=== PATIENT | female | born 1960 ===

== ENCOUNTER 2017-11-06 19:35 | Emergency (ER) | payer BC ==
[2017-11-06] MEDS ORDERED: Sodium Chloride 0.9% 1,000 ML IV STA (20:18)
[2017-11-06] MEDS ORDERED: Morphine 4 mg/ml ISec IVP STA (20:18)
[2017-11-06] MEDS ORDERED: Famotidine 20mg/50ml 20 MG/50 ML BAG IVPB STA (20:21)
--- NOTE | 2017-11-06 20:23 | ED PDOC ---
Arrival/HPI - General Chief Complaint: Abdominal Pain Time Seen by Provider: 11/06/17 19:48 Historian: Patient, Manager Port (medical staff) - History of Present Illness Narrative History of Present Illness (Text): 11/06/17 20:19 pt is primarily a Swazi speaking individual pt p/w + 3 days onset of diffuse mid abd cramps/pain, at most pain is severe at 10/10; pt states pain wax and wanes, felt improved if she defecates; pt states also noted similar timeframe of suprapubic cramps, with urinary changes, ? burning, no urinary frequency/urgency/hesitancy, no gross bleeding noted, no fever/sweats, + chills, no cp/sob/palpitations, no n/v, no numbness/tingling, no diarrhea, pt noted her stool caliber is small, + general headache, no fall/ trauma/sick contact, no travel; pt denied rashes; pt is here for further eval; pt's without other complaints pt with good appetite pt also has been taking PCN? prescribed FROM [place] country PCP: NONE pt had uterine/ovary surgery in her home country, pt had hx of ectopic pt also had hx of abd pains but she does not know the medical dx Family hx: DM Time/Duration: < week (3 days) Symptom Onset: Sudden Symptom Course: Unchanged, Intermittent Quality: Cramping, Gas Like, Other (bloating) Severity Level: 10, Severe Activities at Onset: Rest Context: Home Past Medical History - Provider Review Nursing Documentation Reviewed: Yes - Travel History Have you recently traveled outside [place] w/in the past 3 mons?: No - Past History Past History: No Previous - Infectious Disease Hx of Infectious Diseases: None - Tetanus Immunization Tetanus Immunization: Unknown - Reproductive Menopause: No Currently : No - Cardiac Hx Cardiac Disorders: No - Pulmonary Hx Respiratory Disorders: No - Neurological Hx Neurological Disorder: No - HEENT Hx HEENT Disorder: No - Renal Hx Renal Disorder: No - Endocrine/Metabolic Hx Endocrine Disorders: No - Hematological/Oncological Hx Blood Disorders: No - Integumentary Hx Dermatological Disorder: No - Musculoskeletal/Rheumatological Hx Musculoskeletal Disorders: No - Gastrointestinal Hx Gastrointestinal Disorders: Yes Hx Bowel Surgery: Yes Other/Comment: pt had 7 GI sxs in [place] - Genitourinary/Gynecological Hx Genitourinary Disorders: No - Psychiatric Hx Psychophysiologic Disorder: No Hx Substance Use: No - Surgical History Hx Hysterectomy: Yes Other/Comment: hx 7 GI sxs in [place] - Anesthesia Hx Anesthesia: Yes Hx Anesthesia Reactions: No Family/Social History - Physician Review Nursing Documentation Reviewed: Yes Family/Social History: No Known Family HX Smoking Status: Light Smoker < 10 Cigarettes Daily Hx Alcohol Use: No Hx Substance Use: No Hx Substance Use Treatment: No Allergies/Home Meds Allergies/Adverse Reactions: Allergies No Known Allergies Allergy (Verified 11/06/17 20:00) Review of Systems - Review of Systems Constitutional: Normal. absent: Fatigue Eyes: Normal. absent: Vision Changes ENT: Normal Respiratory: Normal. absent: SOB Cardiovascular: Normal. absent: Chest Pain Gastrointestinal: Abdominal Pain. absent: Diarrhea, Nausea, Vomiting, Appetite Changes Genitourinary Female: Urine Output Changes. absent: Vaginal Bleeding, Vaginal Discharge Musculoskeletal: Normal Skin: Normal. absent: Rash Neurological: Normal, Headache. absent: Dizziness Endocrine: Normal Hemo/Lymphatic: Normal Psychiatric: Normal Physical Exam Vital Signs Reviewed: Yes Vital Signs Temp Pulse Resp BP Pulse Ox 11/06/17 20:00 99.4 F 103 H 18 147/59 L 99 Temperature: Afebrile Blood Pressure: Normal Pulse: Tachycardic Respiratory Rate: Normal Appearance: Positive for: Well-Appearing, Non-Toxic, Uncomfortable, Other (alert /awake, resting in bed, GCS = 15, oriented x 3, uncomfortable, NAD, cooperative) Pain Distress: None Mental Status: Positive for: Alert and Oriented X 3 - Systems Exam Head: Present: Atraumatic, Normocephalic Pupils: Present: PERRL, Other (no nystagmus, no photophobia, sclera anicteric, visual field intact b/l) Extroacular Muscles: Present: EOMI Conjunctiva: Present: Normal Ears: Present: Normal Mouth: Present: Moist Mucous Membranes, Normal Teeth, Other (uvula/tongue are midline, no exudate/lesions, no drooling/stridor, no dysphonia) Pharnyx: Present: Normal Nose (External): Present: Atraumatic Nose (Internal): Present: Normal Inspection Neck: Present: Normal Range of Motion, Trachea Midline, Other (intact ROM, no step off). No: Meningeal Signs, MIDLINE TENDERNESS, Paraspinal Tenderness Respiratory/Chest: Present: Clear to Auscultation, Good Air Exchange, Other ( CTA b/l, no w/r/r, no accessory muscle use noted, no tachypenia). No: Respiratory Distress, Accessory Muscle Use Cardiovascular: Present: Regular Rate and Rhythm, Normal S1, S2. No: Murmurs, Tachycardic Abdomen: Present: Tenderness, Normal Bowel Sounds, Other (well nourished female , + diffuse mid abd tenderness, with tenderness over suprapubic region, no enriquez's sign, no mcburney's point tenderness, no masses/rebound/guarding/ rigidity) Back: Present: Normal Inspection, Other (intact ROM, no step off). No: CVA Tenderness, Midline Tenderness Upper Extremity: Present: Normal Inspection, Normal ROM, NORMAL PULSES, Neurovascularly Intact, Capillary Refill < 2s. No: Deformity Lower Extremity: Present: Normal Inspection, NORMAL PULSES, Normal ROM, Other ( intact ROM, + ambulatory, strength 5/5 grossly in tact in all limbs) Neurological: Present: GCS=15, CN II-XII Intact, Speech Normal Skin: Present: Warm, Normal Color, Other (cap refill < 1sec, no ulcerations, no petechiae, no pallor). No: Rashes Psychiatric: Present: Alert, Oriented x 3 Medical Decision Making ED Course and Treatment: 11/06/17 20:25 Impression: abd pain/cramps with urinary changes i have consider all the differential diagnosis regarding pt's chief medical complaints/clinical findings, including but are not limited to: r/o UTI/renal colic, r/o GB pathology, unlikely obstruction, unlikely diverticulitis A/P: abd pain - labs - iv - us, if inconclusive, CT - ua - supportive care - observe/reevaluation 11:15pm pt is doing well currently awaiting diagnostic results pt states after pain medications, pt's pain is much improved 11/06/17 23:56 On reevaluation the patient feels better and is in no acute distress. I have discussed the results and plan with the patient, who expresses understanding. She was given the option of admission, but patient states that she wants to be discharged home. Patient given the opportunity to ask question, all questions were answered and there is agreement with the plan to discharge the patient home on antibiotics. Patient is stable for discharge. Patient is aware of the risks and was instructed to follow up with physician/clinic in 1-2 days or return if symptoms persist/worsen or new concerning symptoms arise. pt is made aware of her medical results pt is encouraged bland diet pt is encouraged probiotics pt is encouraged fluid hydration pt will f/u as directed pt will be discharged home Re-evaluation Time: 23:30 Reassessment Condition: Improved - Lab Interpretations Lab Results: 11/06/17 21:15 11/06/17 21:15 Lab Results 11/06/17 22:04: pO2 157 H, VBG pH 7.36, VBG pCO2 43.0, VBG HCO3 24.3, VBG Total CO2 25.6, VBG O2 Sat (Calc) 99.2 H, VBG Base Excess -1.3 L, VBG Potassium 3.9, Glucose 171 H, Lactate 0.8, FiO2 21.0, Sodium 139.0, Chloride 111.0 H, Venous Blood Potassium 3.9 11/06/17 21:15: Sodium 145, Potassium 4.2, Chloride 107, Carbon Dioxide 26, Anion Gap 16, BUN 16, Creatinine 0.8, Est GFR ( Amer) > 60, Est GFR (Non- Af Amer) > 60, Random Glucose 177 H, Calcium 9.1, Magnesium 2.0, Total Bilirubin 0.4, AST 23, ALT 29, Alkaline Phosphatase 73, Total Protein 6.4, Albumin 3.8, Globulin 2.6, Albumin/Globulin Ratio 1.5, Lipase 74 11/06/17 21:15: Urine Color Yellow, Urine Appearance Clear, Urine pH 6.5, Ur Specific [place] 1.020, Urine Protein Negative, Urine Glucose (UA) Negative, Urine Ketones Negative, Urine Blood Small H, Urine Nitrate Negative, Urine Bilirubin Negative, Urine Urobilinogen 0.2, Ur Leukocyte Esterase Negative, Urine RBC 1 - 3, Urine WBC 0 - 2, Ur Epithelial Cells 1 - 3, Urine Bacteria Trace 11/06/17 21:15: PT 12.4, INR 1.09 H, APTT 30.8 11/06/17 21:15: WBC 11.9 H, RBC 4.41, Hgb 13.1, Hct 38.6, MCV 87.5, MCH 29.7, MCHC 33.9, RDW 13.0, Plt Count 234, MPV 9.6, Gran % 72.6 H, Lymph % (Auto) 20.2 L, [place] % (Auto) 6.6 H, Eos % (Auto) 0.5 L, Baso % (Auto) 0.1, Gran # 8.65 H, Lymph # (Auto) 2.4, [place] # (Auto) 0.8 H, Eos # (Auto) 0.1, Baso # (Auto) 0.01 I have reviewed the lab results: Yes Interpretation: Abnormal lab values (elevated WBCs (mild), elevated GLUC) - RAD Interpretation Narrative RAD Interpretations (Text): Report Date : 11/06/2017 21:24:00 Prelim reading EXAM: US Abdomen Complete Dictated By: He Banks MD IMPRESSION: No acute findings. CT Abdomen and Pelvis With Intravenous Contrast Addendum created by He Banks MD on 11/06/2017 11:24 PM Eastern Time ([place] & [place]) IMPRESSION: 1. Findings compatible with acute diverticulitis of sigmoid colon. Recommend endoscopy following resolution. 2. Liver lesions, incompletely characterized. Recommend nonemergent MRI. 3. Adrenal lesion, incompletely characterized. Recommend nonemergent MRI. 4. Incidental/non-acute findings are described above. Initial Report created on 11/06/2017 11:15 PM Eastern Time ([place] & [place]) Radiology Orders: 11/06/17 20:18 ABDOMEN COMPLETE [US] Stat 11/06/17 21:21 ABD & PELVIS IV CONTRAST ONLY [CT] Stat Extension Clerk: Radiologist - Medication Orders Current Medication Orders: Ciprofloxacin (Cipro 400mg/200ml Dsw) 400 mg in 200 mls @ 133.3 mls/hr IVPB STAT STA PRN Reason: Protocol Stop: 11/07/17 01:16 Metronidazole (Flagyl) 500 mg in 100 mls @ 100 mls/hr IVPB STAT STA PRN Reason: Protocol Stop: 11/07/17 00:45 Last Admin: 11/07/17 00:05 Dose: 100 mls/hr eMAR Start Stop Document 11/07/17 00:05 CNR (Rec: 11/07/17 00:06 CNR [id number]) Intravenous Solution Start Date 11/07/17 Start Time 00:05 End Date 11/07/17 End time 01:05 Total Infusion Time 60 Discontinued Medications Sodium Chloride (Sodium Chloride 0.9%) 1,000 mls @ 1,000 mls/hr IV .Q1H STA Stop: 11/06/17 21:17 Last Admin: 11/06/17 21:14 Dose: 1,000 mls/hr eMAR Start Stop Document 11/06/17 21:14 CNR (Rec: 11/06/17 21:14 CNR [id number]) Intravenous Solution Start Date 11/06/17 Start Time 21:14 End Date 11/06/17 End time 22:14 Total Infusion Time 60 Famotidine (Pepcid 20mg/50ml Premix) 20 mg in 50 mls @ 100 mls/hr IVPB STAT STA Stop: 11/06/17 20:50 Last Admin: 11/06/17 21:15 Dose: 100 mls/hr eMAR Start Stop Document 11/06/17 21:15 CNR (Rec: 11/06/17 21:15 CNR [id number]) Intravenous Solution Start Date 11/06/17 Start Time 21:15 End Date 11/06/17 End time 21:45 Total Infusion Time 30 Metoclopramide HCl (Reglan) 10 mg IVP STAT STA Stop: 11/06/17 20:19 Last Admin: 11/06/17 21:15 Dose: 10 mg IVP Administration Document 11/06/17 21:15 CNR (Rec: 11/06/17 21:15 CNR [id number]) Charges for Administration # of IVP Administrations 1 Morphine Sulfate (Morphine) 4 mg IVP STAT STA Stop: 11/06/17 20:19 Last Admin: 11/06/17 21:15 Dose: 4 mg MAR Pain Assessment Document 11/06/17 21:15 CNR (Rec: 11/06/17 21:15 CNR [id number]) Pain Reassessment Is this a pain reassessment? Yes IVP Administration Document 11/06/17 21:15 CNR (Rec: 11/06/17 21:15 CNR [id number]) Charges for Administration # of IVP Administrations 1 Disposition/Present on Arrival - Present on Arrival Any Indicators Present on Arrival: No History of DVT/PE: No History of Uncontrolled Diabetes: No Urinary Catheter: No History of Decub. Ulcer: No History Surgical Site Infection Following: None - Disposition Have Diagnosis and Disposition been Completed?: Yes Diagnosis: Acute diverticulitis of intestine Disposition: HOME/ ROUTINE Disposition Time: 00:08 Patient Plan: Discharge Condition: STABLE Discharge Instructions (ExitCare): Diverticulitis (DC), [place] Diet Print Language: KAZAKH Additional Instructions: Make sure to see your doctor in 1-2 days DRINK PLENTY OF FLUIDS take your medications as prescribed BLAND DIET is encouraged RETURN TO ED IF worse pain, cant breath, persistent vomiting, high fever >101- 102 for hours, altered behavior, slurr speech, facial changes, focal weakness ( arm/leg or both), unable to urinate, heavy/persistent bleeding, passing out, chest pain, or other medical emergencies Prescriptions: Ciprofloxacin HCl [Cipro] 500 mg PO BID #20 tab Ibuprofen [Motrin] 600 mg PO QID PRN #30 tab PRN Reason: Pain, Mild (1-3) Metronidazole [Flagyl] 500 mg PO TID #30 tablet oxyCODONE/Acetaminophen [Percocet 5/325 mg Tab] 1 ea PO TID PRN #10 tab PRN Reason: Pain, Moderate (4-7) Referrals: PCP,SU [Primary Care Provider] - Follow up with primary Ophelia Heard MD [Staff Provider] - Follow up with primary Keyon Dominguez DO [Staff Provider] - Follow up with primary Rohan Dominguez MD [Medical Doctor] - Follow up with primary Forms: [employer] (Telugu), [employer] (Swazi), WORK NOTE
--- NOTE | 2017-11-06 21:24 | US ---
EXAM: US Abdomen Complete CLINICAL HISTORY: 43 years old, female; Pain; Abdominal pain; Generalized; Additional info: Mid abd pain/abd cramps TECHNIQUE: Real-time ultrasound of the abdomen (complete) with image documentation. COMPARISON: No relevant prior studies available. FINDINGS: Liver: Normal echogenicity. No mass. No intrahepatic bile duct dilatation. Gallbladder: No gallstones. No wall thickening. No pericholecystic fluid. No sonographic Villagomez's sign. Common bile duct: No dilatation. No stones. Pancreas: Unremarkable as visualized. Kidneys: Normal echogenicity. No hydronephrosis. Spleen: No splenomegaly. Aorta: Unremarkable. No aneurysm. Inferior vena cava: Unremarkable. Free fluid: No significant free fluid. IMPRESSION: 1.No acute findings.
[2017-11-06 21:51] LABS: BASO # 0.01 K/mm3 (0.0-2.0); BASO % 0.1 % (0.0-3.0); EOS # 0.1 (0.0-0.7); EOS % 0.5 % (1.5-5.0); GRAN # 8.65 (1.4-6.5); GRAN % 72.6 % (50.0-68.0); HEMOGLOBIN 13.1 g/dL (12.0-16.0); LYMPH # 2.4 (1.2-3.4); LYMPH % 20.2 % (22.0-35.0); MEAN CELL VOLUME 87.5 fl (80.0-105.0); MEAN CORPUSCULAR HEMOGLOBIN 29.7 pg (25.0-35.0); MEAN CORPUSCULAR HGB CONC 33.9 g/dl (31.0-37.0); MEAN PLATELET VOLUME 9.6 fl (7.0-11.0); MONO # 0.8 (0.1-0.6); MONO % 6.6 % (1.0-6.0); PH,URINE 6.5 (4.7-8.0); RBC 4.41 10^6/uL (3.5-6.1); URINE BILIRUBIN NEGATIVE (NEGATIVE); URINE BLOOD SMALL (NEGATIVE); URINE GLUCOSE (UA) NEGATIVE (NEGATIVE); URINE LEUKOCYTE ESTERASE NEGATIVE Leu/uL (NEGATIVE); URINE PROTEIN NEGATIVE mg/dL (<30 mg/dL); URINE UROBILINOGEN 0.2 E.U./dL (<1 E.U./dL); WHITE BLOOD COUNT 11.9 10^3/ul (4.5-11.0)
[2017-11-06 21:54] LABS: URINE APPEARANCE CLEAR (CLEAR); URINE COLOR YELLOW (YELLOW)
[2017-11-06 21:55] LABS: INR 1.09 (0.93-1.08); PARTIAL THROMBOPLASTIN TIME 30.8 Seconds (25.1-36.5); PROTHROMBIN TIME 12.4 SECONDS (9.4-12.5)
[2017-11-06 21:57] LABS: URINE WBC 0 - 2 /hpf (0-6)
[2017-11-06 21:58] LABS: ALB/GLOB RATIO 1.5 (1.1-1.8); ALBUMIN 3.8 g/dL (3.0-4.8); ALT/SGPT 29 U/L (7-56); AST/SGOT 23 U/L (14-36); BLOOD UREA NITROGEN 16 mg/dL (7-21); CALCIUM 9.1 mg/dL (8.4-10.5); GFR AFRICAN-AMERICAN > 60; GFR NON-AFRICAN AMERICAN > 60; LIPASE 74 U/L (23-300); URINE BACTERIA TRACE (NEG)
[2017-11-06 22:07] LABS: VENOUS BLOOD GAS BASE EXCESS -1.3 mmol/L (0.0-2.0); VENOUS BLOOD GAS PO2 157 mm/Hg (30-55); VENOUS BLOOD PH 7.36 (7.32-7.43)
[2017-11-06] MEDS ORDERED: Iohexol 350 MG/100 ML VIAL ONE (22:12)
--- NOTE | 2017-11-06 23:15 | CT ---
EXAM: CT Abdomen and Pelvis With Intravenous Contrast CLINICAL HISTORY: 57 years old, female; Pain; Abdominal pain; Prior surgery; Surgery type: Hysterectomy - (7) gi sx's; Additional info: Diffuse abd cramps/pain; Stool changes x 3 days TECHNIQUE: Axial computed tomography images of the abdomen and pelvis with intravenous contrast. All CT scans at this facility use one or more dose reduction techniques, viz.: automated exposure control; ma/kV adjustment per patient size (including targeted exams where dose is matched to indication; i.e. head); or iterative reconstruction technique. Coronal and sagittal reformatted images were created and reviewed. CONTRAST: 94 mL of omni 350 administered intravenously. COMPARISON: US - ABDOMEN COMPLETE 2017-11-06 20:32 FINDINGS: Lung bases: Mild atelectasis. ABDOMEN: Liver: Few probable cysts, up to 1.6 cm. Gallbladder and bile ducts: No calcified stones. No ductal dilation. Pancreas: No ductal dilation. No mass. Spleen: No splenomegaly. Adrenals: 1.6 x 1.6 x 1.9 cm lesion within LEFT adrenal gland, indeterminate by CT criteria. Kidneys and ureters: Too small to characterize lesion within LEFT kidney. No hydronephrosis. Stomach and bowel: Scattered diverticula within colon. Moderate mural thickening short segment of proximal sigmoid colon. Mild stranding within adjacent fat. No obstruction. PELVIS: Appendix: Normal caliber. No inflammation. Bladder: Unremarkable. Reproductive: Hysterectomy. ABDOMEN and PELVIS: Intraperitoneal space: Trace free fluid within pelvis. No free air. Bones/joints: No acute fracture. Soft tissues: Laparotomy scar. Vasculature: Mild atherosclerotic disease. No aneurysm. Lymph nodes: No pathologically enlarged lymph nodes. IMPRESSION: 1. Findings compatible with acute diverticulitis of sigmoid colon. Recommend endoscopy following resolution. 2. Adrenal lesion, incompletely characterized. Recommend nonemergent MRI. 3. Incidental/non-acute findings are described above.
[2017-11-06] MEDS ORDERED: metroNIDAZOLE IV 500 mg/100 ml 500 MG/100 ML BAG IVPB STA (23:46)
[2017-11-06] MEDS ORDERED: Ciprofloxacin 400mg/200ml D5W 400 MG/200 ML BAG IVPB STA (23:46)
[2017-11-07 07:51] VITALS: BP 114/80; PULSE 78; RESP 14; TEMP 99; O2SAT 100
== END 2017-11-07 02:24 | disposition home or self-care (01) ==
LOC: EDBD → MERGE 19:35 → ED 19:35
DX: K57.92 Diverticulitis of intestine, part unspecified, without perforation or abscess without bleeding (principal); F17.210 Nicotine dependence, cigarettes, uncomplicated
CPT/HCPCS: 74177; 76700; 80053; 81001; 82803; 83690; 83735; 85025; 85610; 85730; 96365; 96367; 96375; 99284; J0744; J2270; J2765; J7040; Q9967